=== PATIENT | female | born 1945 | race Hispanic/Latino ===

== ENCOUNTER → 2019-07-19 | Outpatient (CLI) | payer MEDICARE ==
[~2019-07-19] MED LIST: REGADENOSON 0.4 MG/5 ML SYR IV ONE
--- NOTE | 2019-07-20 18:53 | Myoview Stress Test ---
DATE OF STUDY: 07/19/2019 08:23:00 Stress Test - Treadmill ONLY PROCEDURE TITLE: Rest/stress single isotope SPECT imaging with pharmacologic stress and gated SPECT imaging. INDICATION: Chest pain. PROCEDURE IN DETAIL: Pharmacologic stress testing was performed with regadenoson per protocol. The heart rate was 50 beats per minute at rest and increased to 105 beats per minute during the regadenoson infusion. The rest blood pressure was 107/60 mmHg and decreased to 105/63 mmHg, which is a normal response. The resting electrocardiogram demonstrated sinus rhythm with PACs. There were no ST segment changes suggestive of myocardial ischemia. Next, myocardial perfusion imaging was performed at rest following the injection of 11 mCi of tetrofosmin. At peak pharmacologic effect, the patient was injected with 33 mCi of tetrofosmin. Gated post-stress tomographic imaging was performed. FINDINGS: The overall quality of the study is fair. Attenuation artifact is present. Left ventricular cavity is noted to be normal size on the rest and stress studies. SPECT images demonstrate homogeneous tracer distribution throughout the myocardium. Gated SPECT imaging reveals normal myocardial thickening and wall motion. Overall left ventricular systolic function was calculated to be greater than 70%. IMPRESSION: Myocardial perfusion imaging is normal. Left ventricular ejection fraction was normal without regional wall motion abnormalities. Luciana Tadeo MD ABS/MODL /[id number]
== END ==
LOC: NM 08:11
PROVIDERS: ATTEND Internal Medicine
DX: R07.9 Chest pain, unspecified (principal)
CPT/HCPCS: 78452; 93017; 93306; A9502; J2785

== ENCOUNTER 2023-02-09 08:43 | Inpatient (IN) | payer MEDICARE ==
[2023-02-06 10:48] LABS: BASOPHILS # (AUTO) 0.1 (0.0-0.1); BASOPHILS % 0.9 % (0.0-1.0); EOSINOPHILS # (AUTO) 0.1 (0.0-0.4); EOSINOPHILS % 1.8 % (0.0-6.0); HEMATOCRIT 40.4 % (34.2-44.1); HEMOGLOBIN 12.9 g/dL (12.0-16.0); LYMPHOCYTES # (AUTO) 1.6 (1.0-3.2); LYMPHOCYTES % 24.9 % (18.0-39.1); MEAN CORPUSCULAR HEMOGLOBIN 31.1 pg (28-32); MEAN CORPUSCULAR HGB CONC 31.9 g/dL (31-35); MEAN CORPUSCULAR VOLUME 97.3 fL (81-99); MONOCYTES # (AUTO) 0.4 (0.2-0.8); MONOCYTES % 6.1 % (4.4-11.3); NEUTROPHILS # (AUTO) 4.3 (2.1-6.9); PLATELET COUNT 250 x10e3/uL (140-360); RED BLOOD COUNT 4.15 x10e6/uL (3.6-5.1); RED CELL DISTRIBUTION WIDTH 12.5 % (11.7-14.4)
[2023-02-06 11:12] LABS: CALCIUM 8.7 mg/dL (8.4-10.2); CREATININE, SERUM 0.79 mg/dL (0.57-1.11)
[~2023-02-09] VITALS: Ht 149.9 cm; Wt 65.8 kg
[~2023-02-09 08:43] MED LIST changes: +ALENDRONATE SOD70 MG PO; +AMLODIPINE BESYL5 MG PO; +CALTRATE 600 W1 EACH PO; +MULTI-VITAMIN1 EACH PO; -REGADENOSON 0.4 MG/5 ML SYR IV ONE; +SIMVASTATIN40 MG PO; +ZESTRIL10 MG PO
[2023-02-09] MEDS ORDERED: PIPERACILLIN/TAZOBACTAM 3.375 GM VIAL ONE (08:50)
[2023-02-09] MEDS ORDERED: LACTATED RINGER'S 1,000 ML ONE (08:50)
[2023-02-09] MEDS ORDERED: Clindamycin INJ 300 MG/50 ML 50 ML IV ONE (08:50)
[2023-02-09] MEDS ORDERED: GENTAMICIN 80MG/NS 100 ML 200 ML IV ONE (08:50)
[2023-02-09] MEDS ORDERED: LIDOCAINE 2%/ EPINEPHRINE 20ML MDV ONE (08:59)
[2023-02-09] MEDS ORDERED: GENTAMICIN SULFATE 40 MG/ML 2 ML VIAL ONE (09:00)
[2023-02-09] MEDS ORDERED: BUPIVACAINE HCL 0.5% INJ 30 ML VIAL INJ ONE (09:00)
[2023-02-09] MEDS ORDERED: BACITRACIN ZINC 15 GM OINT ONE (09:00)
[2023-02-09] MEDS ORDERED: IOPAMIDOL 610MG/1ML 300 MG/ML VIAL IV ONE (12:35)
[2023-02-09] MEDS ORDERED: FENTANYL CITRATE/PF 100MCG/2 ML INJ ONE (13:54)
[2023-02-09] MEDS ORDERED: ACETAMINOPHEN 1000 MG/100 ML 100 ML IV ONE (14:13)
[2023-02-09] MEDS ORDERED: ACETAMINOPHEN 1000 MG/100 ML IV ONE (14:15)
[2023-02-09] MEDS ORDERED: ONDANSETRON HCL INJ 2MG/ML 2ML 2 MG/ML VIAL IV PRN (15:00)
[2023-02-09] MEDS ORDERED: DIPHENHYDRAMINE HCL 25 MG CAP PO PRN (15:00)
[2023-02-09] MEDS ORDERED: ACETAMINOPHEN/CODEINE 300MG - 30MG TAB PO PRN (15:00)
[2023-02-09] MEDS ORDERED: PHENAZOPYRIDINE HCL 100 MG TAB PO PRN (15:00)
[2023-02-09] MEDS ORDERED: POVIDONE IODINE 0.05% 0.05 % ML PO ONE (15:46)
[2023-02-09] MEDS ORDERED: EPHEDRINE SULFATE INJ 50 MG/ML VIAL ONE (15:46)
[2023-02-09] MEDS ORDERED: ONDANSETRON HCL INJ 2MG/ML 2ML 2 MG/ML VIAL ONE (15:46)
[2023-02-09] MEDS ORDERED: DEXAMETHASONE SOD PHOS INJ 4 MG/ML SDV ONE (15:46)
[2023-02-09] MEDS ORDERED: PROPOFOL IV EMULSION 10 MG/ML 20 ML VIAL ONE (15:46)
[2023-02-09] MEDS ORDERED: LIDOCAINE HCL 2% LOCAL INJ 5 ML SDV VIAL INJ ONE (15:46)
[2023-02-09 15:56] LABS: BASOPHILS % 0.2 % (0.0-1.0); EOSINOPHILS % 0.3 % (0.0-6.0); HEMATOCRIT 36.4 % (34.2-44.1); HEMOGLOBIN 11.9 g/dL (12.0-16.0); LYMPHOCYTES # (AUTO) 0.9 (1.0-3.2); LYMPHOCYTES % 10.3 % (18.0-39.1); MEAN CORPUSCULAR HEMOGLOBIN 31.2 pg (28-32); MEAN CORPUSCULAR HGB CONC 32.7 g/dL (31-35); MEAN CORPUSCULAR VOLUME 95.3 fL (81-99); MONOCYTES # (AUTO) 0.2 (0.2-0.8); MONOCYTES % 2.2 % (4.4-11.3); NEUTROPHILS # (AUTO) 7.6 (2.1-6.9); NEUTROPHILS % 86.7 % (38.7-80.0); PLATELET COUNT 212 x10e3/uL (140-360); RED BLOOD COUNT 3.82 x10e6/uL (3.6-5.1); RED CELL DISTRIBUTION WIDTH 12.6 % (11.7-14.4)
[2023-02-09 16:19] LABS: ANION GAP 13.7 mmol/L (8-16); CALCIUM 8.5 mg/dL (8.4-10.2); CREATININE, SERUM 0.77 mg/dL (0.57-1.11); POTASSIUM 3.7 mmol/L (3.5-5.1)
[2023-02-09 16:41] VITALS: PULSE 72; RESP 18; O2SAT 97
[2023-02-09 17:24] VITALS: BP 104/62; PULSE 71; RESP 20; TEMP 97.7; O2SAT 100
[2023-02-09 17:31] VITALS: BP 104/62; PULSE 71; RESP 20; TEMP 97.7; O2SAT 100
[2023-02-09] MEDS: DOCUSATE SODIUM 100 MG CAP PO SCH (17:46)
[2023-02-09] MEDS: SODIUM CHLORIDE 0.9% 1000ML 1,000 ML IV SCH (17:46)
[2023-02-09] MEDS ORDERED: ACETAMINOPHEN 1000 MG/100 ML IV PRN (18:00)
[2023-02-09 19:49] VITALS: BP 105/71; PULSE 68; RESP 20; TEMP 97.8; O2SAT 100
[2023-02-09 19:50] VITALS: BP 105/71; PULSE 68; RESP 20; TEMP 97.8; O2SAT 100
[2023-02-10] VITALS: BP 118/78; PULSE 63; RESP 20; TEMP 98.4; O2SAT 97
[2023-02-10] MEDS: SODIUM CHLORIDE 0.9% 1000ML 1,000 ML IV SCH ×2 (02:29→20:38)
[2023-02-10 05:37] LABS: BASOPHILS % 0.2 % (0.0-1.0); HEMOGLOBIN 11.1 g/dL (12.0-16.0); LYMPHOCYTES % 8.3 % (18.0-39.1); MEAN CORPUSCULAR HEMOGLOBIN 31.4 pg (28-32); MEAN CORPUSCULAR HGB CONC 32.6 g/dL (31-35); MONOCYTES # (AUTO) 0.6 (0.2-0.8); MONOCYTES % 5.6 % (4.4-11.3); NEUTROPHILS # (AUTO) 9.9 (2.1-6.9); NEUTROPHILS % 85.6 % (38.7-80.0); PLATELET COUNT 191 x10e3/uL (140-360); RED BLOOD COUNT 3.54 x10e6/uL (3.6-5.1); RED CELL DISTRIBUTION WIDTH 12.3 % (11.7-14.4)
[2023-02-10 06:10] LABS: ANION GAP 13.6 mmol/L (8-16); CALCIUM 8.4 mg/dL (8.4-10.2); CREATININE, SERUM 0.73 mg/dL (0.57-1.11); POTASSIUM 4.6 mmol/L (3.5-5.1)
[2023-02-10] MEDS ORDERED: MELATONIN 3 MG TAB PO PRN (07:30)
[2023-02-10] MEDS ORDERED: SIMETHICONE 80 MG CHEW PO PRN (07:30)
[2023-02-10] MEDS ORDERED: DOCUSATE SODIUM 100 MG CAP PO PRN (07:30)
[2023-02-10] MEDS ORDERED: METOPROLOL TARTRATE INJ 1 MG/ML VIAL IV PRN (07:30)
[2023-02-10 08:46] VITALS: BP 121/71; PULSE 65; RESP 16; TEMP 97.9; O2SAT 100
[2023-02-10 09:00] VITALS: BP 121/71; PULSE 65; RESP 16; TEMP 97.9; O2SAT 100
[2023-02-10] MEDS: MULTIVITAMINS/MINERALS TAB PO SCH (09:26)
[2023-02-10] MEDS: DOCUSATE SODIUM 100 MG CAP PO SCH ×2 (09:26→17:29)
[2023-02-10] MEDS: AMLODIPINE BESYLATE 5 MG TAB PO SCH (09:27)
[2023-02-10 13:02] VITALS: BP 136/80; PULSE 65; RESP 17; TEMP 98.2; O2SAT 99
[2023-02-10 16:00] VITALS: BP 130/82; PULSE 85; RESP 16; TEMP 99; O2SAT 99
[2023-02-10] MEDS ORDERED: SIMVASTATIN 40 MG TAB PO SCH (21:00)
[2023-02-11] VITALS: BP 126/83; PULSE 81; RESP 18; TEMP 99; O2SAT 97
[2023-02-11 05:47] LABS: BASOPHILS % 0.2 % (0.0-1.0); EOSINOPHILS # (AUTO) 0.2 (0.0-0.4); EOSINOPHILS % 1.6 % (0.0-6.0); HEMATOCRIT 32.9 % (34.2-44.1); HEMOGLOBIN 10.9 g/dL (12.0-16.0); LYMPHOCYTES # (AUTO) 1.5 (1.0-3.2); LYMPHOCYTES % 16.6 % (18.0-39.1); MEAN CORPUSCULAR HEMOGLOBIN 31.1 pg (28-32); MEAN CORPUSCULAR HGB CONC 33.1 g/dL (31-35); MEAN CORPUSCULAR VOLUME 93.7 fL (81-99); MONOCYTES # (AUTO) 0.8 (0.2-0.8); MONOCYTES % 8.2 % (4.4-11.3); NEUTROPHILS # (AUTO) 6.7 (2.1-6.9); NEUTROPHILS % 73.1 % (38.7-80.0); PLATELET COUNT 195 x10e3/uL (140-360); RED BLOOD COUNT 3.51 x10e6/uL (3.6-5.1); RED CELL DISTRIBUTION WIDTH 12.8 % (11.7-14.4)
[2023-02-11 06:19] LABS: ANION GAP 10.8 mmol/L (8-16); CALCIUM 8.7 mg/dL (8.4-10.2); CREATININE, SERUM 0.72 mg/dL (0.57-1.11); POTASSIUM 3.8 mmol/L (3.5-5.1)
[2023-02-11 08:19] VITALS: BP 129/77; PULSE 75; RESP 19; TEMP 98.9; O2SAT 98
[2023-02-11] MEDS: DOCUSATE SODIUM 100 MG CAP PO SCH (10:56)
[2023-02-11] MEDS: MULTIVITAMINS/MINERALS TAB PO SCH (10:56)
[2023-02-11] MEDS: AMLODIPINE BESYLATE 5 MG TAB PO SCH (10:57)
[2023-02-11] MEDS ORDERED: ONDANSETRON HCL 4 MG ORAL DISINTEGRATING TAB PO PRN (12:30)
[2023-02-11 12:41] VITALS: BP 123/73; PULSE 74; RESP 19; TEMP 99.1; O2SAT 100
== END 2023-02-11 15:46 | disposition home or self-care (01) | DRG 748 ==
LOC: OR 08:43 → PACU V 14:55 → MED/SURG3 15:20
PROVIDERS: ADMIT Internal Medicine; ATTEND Internal Medicine
PROC: 0JUC0KZ Supplement of Pelvic Region Subcutaneous Tissue and Fascia with Nonautologous Tissue Substitute, Open Approach (ICD-10-PCS; principal; 2023-02-09 11:54)
PROC: BT141ZZ Fluoroscopy of Kidneys, Ureters and Bladder using Low Osmolar Contrast (ICD-10-PCS; 2023-02-09 11:54)
DX: N81.10 Cystocele, unspecified (principal); N39.0 Urinary tract infection, site not specified; N39.3 Stress incontinence (female) (male); I10 Essential (primary) hypertension; E78.5 Hyperlipidemia, unspecified; D64.9 Anemia, unspecified; M81.0 Age-related osteoporosis without current pathological fracture
CPT/HCPCS: 36415; 71046; 74420; 80048; 83735; 85025; 93005; 94799; 96361; C1758; C1762; J1100; J1580; J2001; J2405; J2543; J7030

== ENCOUNTER 2025-04-17 16:19 | Emergency (ER) | payer MEDICARE ==
[~2025-04-17] VITALS: Ht 149.9 cm; Wt 65.8 kg
[2025-04-17 20:34] VITALS: PULSE 71; RESP 17; TEMP 98.5; O2SAT 99
== END 2025-04-17 20:31 | disposition home or self-care (01) ==
LOC: ER 20:15
DX: S16.1XXA Strain of muscle, fascia and tendon at neck level, initial encounter (principal); S51.012A Laceration without foreign body of left elbow, initial encounter; V47.5XXA Car driver injured in collision with fixed or stationary object in traffic accident, initial encounter; Y92.488 Other paved roadways as the place of occurrence of the external cause; I10 Essential (primary) hypertension; E78.5 Hyperlipidemia, unspecified; F41.9 Anxiety disorder, unspecified
CPT/HCPCS: 72050; 99283